=== PATIENT | female | born 1950 | race Asian ===

== ENCOUNTER 2018-11-27 07:18 | Day surgery (SDC) | payer BC ==
[~2018-11-27] VITALS: Ht 149.9 cm; Wt 70.0 kg
[2018-11-27] MEDS ORDERED: PANTOPRAZOLE (08:19)
[2018-11-27] MEDS ORDERED: ATENOLOL (08:19)
[2018-11-27] MEDS ORDERED: NPH INSULIN (08:19)
[2018-11-27] MEDS ORDERED: ASPIRIN 81MG (08:19)
[2018-11-27] MEDS ORDERED: LISINOPRIL (08:19)
[2018-11-27] MEDS ORDERED: REGULAR INSULIN (08:19)
[2018-11-27] MEDS ORDERED: CALCIUM VIT D (08:19)
[2018-11-27 08:22] VITALS: Ht 149.9 cm; Wt 70.0 kg
--- NOTE | 2018-11-27 08:42 | PREAC ---
Date/Time of Note Date/Time of Note DATE: 11/27/18 TIME: 08:40 Anesthesia Eval and Record Evaluation Time Pre-Procedure Interview DATE: 11/27/18 TIME: 08:40 Age 68 Sex female NPO: 8 hrs Preoperative diagnosis Reflux, Screening Planned procedure EGD, Colonoscopy Past Medical History Past Medical History: Includes Cardio: HTN Endo: Diabetes Renal: CKD Hepatic: Other (Fatty Liver) Surgery & Anesthesia Issues No known issue Meds Anticoagulation: No Beta Eleni within 24 hr: No Reason Beta Eleni not given: Pt. not on B-Eleni Reported Medications [Calcium Vit D] No Conflict Check 11/27/18 [Protonix Prn] No Conflict Check 11/27/18 [Lisinopril] No Conflict Check 11/27/18 [Atenolol] No Conflict Check 11/27/18 [Aspirin 81MG] No Conflict Check 11/27/18 [Regular Insulin] No Conflict Check 11/27/18 [Nph Insulin] No Conflict Check 11/27/18 Meds reviewed: Yes Allergies Allergies Reviewed: Yes Labs/Studies Labs Reviewed: Reviewed by anesthesiologist test: N/A Pre-procedure Exam Airway: Adequate mouth opening, Adequate thyromental dist Mallampati: Mallampati II Teeth: Normal Lung: Normal Heart: Normal ASA Physical Status ASA physical status: 3 Emergency: None Planned Anesthetic General/MAC: MAC Pre-operative Attestations Prior to commencing anesthesia and surgery, the patient was re-evaluated, there was verification of: *The patient's identity *The results of appropriate recent lab work and preoperative vital signs *The above evaluation not changing prior to induction *Anesthetic plan, risk benefits, alternative and complications discussed with patient/family; questions answered; patient/family understands, accepts and wishes to proceed. SENDY GREER MD Nov 27, 2018 08:42
[2018-11-27 08:53] VITALS: BP 153/69; PULSE 61; RESP 27
[2018-11-27] MEDS ORDERED: PROPOFOL 40 ML ONE (08:53)
[2018-11-27] MEDS ORDERED: hydrALAzine 20 MG INJ ONE (09:07)
[2018-11-27] MEDS ORDERED: PROPOFOL 20 ML ONE (09:32)
--- NOTE | 2018-11-27 09:33 | PAC ---
Date/Time of Note Date/Time of Note DATE: 11/27/18 TIME: 09:33 Post-Anesthesia Notes Post-Anesthesia Note Last documented vital signs T: 98 Activity: WNL Respiratory function: WNL Cardiovascular function: WNL Mental status: Baseline Pain reasonably controlled: Yes Hydration appropriate: Yes Nausea/Vomiting absent: Yes SENDY GREER MD Nov 27, 2018 09:33
[2018-11-27 10:05] VITALS: BP 100/48; PULSE 76; RESP 12
== END 2018-11-27 11:52 | disposition home or self-care (01) ==
LOC: GIL 07:18
PROVIDERS: ATTEND Internal Medicine Gastroenterology
DX: Z12.11 Encounter for screening for malignant neoplasm of colon (principal); K64.8 Other hemorrhoids; K57.30 Diverticulosis of large intestine without perforation or abscess without bleeding; D12.0 Benign neoplasm of cecum; K44.9 Diaphragmatic hernia without obstruction or gangrene; K21.9 Gastro-esophageal reflux disease without esophagitis; I12.9 Hypertensive chronic kidney disease with stage 1 through stage 4 chronic kidney disease, or unspecified chronic kidney disease; N18.9 Chronic kidney disease, unspecified; I25.10 Atherosclerotic heart disease of native coronary artery without angina pectoris
CPT/HCPCS: 43239; 45385; 88305; J0360